=== PATIENT | female | born 1965 | race Caucasian/White ===

== ENCOUNTER 2017-07-08 16:55 | Inpatient (IN) | payer MEDICAID ==
[~2017-07-08] VITALS: Ht 160 cm; Wt 81.6 kg
[2017-07-08 17:00] VITALS: BP 160/78
--- NOTE | 2017-07-08 17:23 | NUR ---
PT C/O CONSTANT STABBING SENSATION PAIN TO UPPER ABDOMEN X 1 WEEK, WORSENING TODAY. WAS SEEN IN [facility], BUT NOT GETTING BETTER-DID NOT ANY RX PER PT. DENIES N/V/D, BUT REPORTS CONSTIPATION, LAST BM 07/04/17. DENIES FEVERS/CHILLS. DENIES DYSURIA, BUT STATES COLOR IS DARK ORANGE. MED HX: GALLSTONES. RX: PRILOSEC, MAALOXSKIN IS PINK/WARM/DRY; AAOX4 WITH EVEN AND STEADY GAIT; LUNGS CLEAR BL; PATIENT STATES PAIN OF 10/10 AT THIS TIME; PATIENT POSITIONED FOR COMFORT; HOB ELEVATED; BEDRAILS UP X2; BED DOWN. ER MD MADE AWARE OF PT STATUS.
--- NOTE | 2017-07-08 17:36 | NUR ---
Patient being evaluated by DR GIL at bedside.
[2017-07-08] MEDS ORDERED: MORPHINE SULFATE 4 MG/ML SYR IVP ONE (17:40)
[2017-07-08] MEDS ORDERED: NACL 0.9% 1,000 ML IV ONE (17:40)
[2017-07-08 18:05] LABS: BILIRUBIN,URINE 1+ (NEGATIVE); BLOOD, URINE 3+ (NEGATIVE); COLOR,URINE YELLOW (YELLOW); LEUKOCYTE ESTERASE ,URINE TRACE (NEGATIVE); NITRITE, URINE NEGATIVE (NEGATIVE); PH,URINE 7.5 (5.0-9.0); UGLUCOSE NEGATIVE (NEGATIVE)
[2017-07-08 18:06] LABS: APPEARANCE,URINE HAZY (CLEAR)
[2017-07-08 18:06] LABS: BASOPHILS % (AUTO) 0.6 % (0.0-2.0); EOSINOPHILS # (AUTO) 0.1 K/uL (0-0.4); EOSINOPHILS % (AUTO) 1.1 % (0.0-4.0); HEMATOCRIT 38.2 % (36-48); HEMOGLOBIN 12.8 g/dL (12.0-16.0); LYMPHOCYTES # (AUTO) 1.4 K/uL (2.5-16.5); LYMPHOCYTES % (AUTO) 17.1 % (20.5-51.1); MEAN CORPUSCULAR HEMOGLOBIN 30 pg (27-31); MEAN CORPUSCULAR HGB CONC 34 g/dL (33-37); MEAN CORPUSCULAR VOLUME 90 fL (80-94); MONOCYTES # (AUTO) 0.3 K/uL (0.8-1.0); MONOCYTES % (AUTO) 3.3 % (1.7-9.3); NEUTROPHILS # (AUTO) 6.1 K/uL (1.8-7.7); NEUTROPHILS % (AUTO) 77.9 % (42.2-75.2); PLATELET COUNT (AUTO) 220 K/uL (140-450); RED BLOOD CELL COUNT(AUTO) 4.25 MIL/uL (4.20-5.40); RED CELL DISTRIBUTION WIDTH 12.4 % (11.6-13.7); WHITE BLOOD COUNT (AUTO) 7.9 K/uL (4.8-10.8)
[2017-07-08 18:08] LABS: RBC,URINE 80-100 /HPF (0-5)
[2017-07-08 18:17] LABS: ANION GAP 15.4 (8-16); CARBON DIOXIDE 27.3 mmol/L (21-32); CREATININE 0.9 mg/dL (0.6-1.3); POTASSIUM 3.7 mmol/L (3.5-5.1)
[2017-07-08 18:23] LABS: ALBUMIN 4.1 g/dL (3.4-5.0); TOTAL BILIRUBIN 6.7 mg/dL (0.0-1.0)
--- NOTE | 2017-07-08 18:40 | NUR ---
PT C/O BODY RASHES & FEELS ITCHING. NOTIFIED DR GIL.
[2017-07-08] MEDS ORDERED: diphenhydrAMINE 50 MG/ML VIAL IVP ONE (18:50)
--- NOTE | 2017-07-08 19:02 | NUR ---
PT TAKEN TO X RAY
[2017-07-08] MEDS ORDERED: cefTRIAXone 1,000 MG VIAL ONE (19:04)
--- NOTE | 2017-07-08 19:14 | NUR ---
Pt report given to ESTUARDO ISLAS. Transfer of care at this time.
[2017-07-08] MEDS ORDERED: FAMOTIDINE 20 MG/2 ML VIAL IVP ONE (20:10)
[2017-07-08] MEDS ORDERED: NACL 0.9% 1,000 ML IV SCH (20:33)
[2017-07-08] MEDS ORDERED: DOCUSATE SODIUM 100 MG GELCAP PO PRN (20:35)
[2017-07-08] MEDS ORDERED: ACETAMINOPHEN 325 MG TAB PO PRN (20:35)
[2017-07-08] MEDS ORDERED: MORPHINE SULFATE 4 MG/ML SYR IVP PRN (20:35)
[2017-07-08] MEDS ORDERED: ONDANSETRON 4 MG/2 ML VIAL IM/IVP PRN (20:35)
--- NOTE | 2017-07-08 20:52 | NUR ---
Patient will be admitted to care of Dr. Dover. Admited to tele 112 A. Belongings list completed. Report to johnna. orders endorsed.
--- NOTE | 2017-07-08 21:00 | NUR ---
RECEIVED PT FROM ER VIA [facility] [employer] SPEAKER AAOX4 AMBULATORY ON TELEMETRY SR, HEP LOCK ON RT AC PATENT RELATIVES AT BED SIDE, NARES SWAB TAKEN AND SENT TO LAB , NOT SIGN OF ABD NOTED PT IS ORIENTED TO THE ROOM CALL LIGHT WITHIN REACH, SKIN IS INTACT. Addendum: 07/09/17 at 0017 by Lluvia Zarate RN PT ON ADMISSION IS SB HR 56 INSTRUCTIONAL FACILITATOR FROM ER
[2017-07-08 21:01] LABS: PROTHROMBIN TIME 9.6 secs (10.8-13.4)
[2017-07-08 21:02] LABS: BARBITURATE, URINE NEG. ng/ml (NEG <=200); BENZODIAZEPINE, URINE NEG. ng/mL (NEG <=200); CANNABINOID, URINE NEG. ng/mL (NEG <=50); COCAINE, URINE NEG. ng/mL (NEG <=300); OPIATE, URINE NEG. ng/mL (NEG <=2000); PHENCYCLIDINE SCREEN,URINE NEG. ng/mL (NEG <=25)
--- NOTE | 2017-07-08 21:02 | NUR ---
PT SKIN COLOR IS JAUNDICE AND TOTAL BILIRRUBINE IS 6.7
[2017-07-08 21:13] LABS: FREE T4 (FREE THYROXINE) 1.24 ng/dL (0.76-1.46); MAGNESIUM 2.1 mg/dL (1.8-2.4); PHOSPHORUS 3.1 mg/dL (2.5-4.9); THYROID STIMULATING HORMONE 1.32 uIU/mL (0.34-3.74)
[2017-07-08 21:15] VITALS: BP 127/74
[2017-07-08] MEDS ORDERED: BISACODYL 5 MG TABEC PO SCH (22:35)
[2017-07-08] MEDS ORDERED: LEVOFLOXACIN 750 MG/D5W PREMIX 150 ML IV SCH (22:55)
[2017-07-08] MEDS ORDERED: diphenhydrAMINE 50 MG/ML VIAL IVP SCH (23:35)
[2017-07-09] VITALS (9 sets, daily range): BP systolic 108–138; BP diastolic 57–77
--- NOTE | 2017-07-09 | NUR ---
PT IS ASSISTED TO GO TO THE RESTROOM DENIES ANY PAIN ON TELEMETRY SB
--- NOTE | 2017-07-09 03:19 | NUR ---
REMAIN STABLEDENIES ANT ABD PAIN SKLEEPINGWELL ON TELEMETRY SB
[2017-07-09] MEDS ORDERED: CLINDAMYCIN 600 MG/4 ML VIAL ONE (04:26)
[2017-07-09] MEDS: CLINDAMYCIN 600 MG in DEXTROSE 5% 50 ML IV SCH ×2 (04:55→13:24)
--- NOTE | 2017-07-09 06:59 | NUR ---
PT HAS BEEN VOIDING WELL IV ON RT AC INFUSING WELL NOT DISTRESS NOTED ONTELEMETRY SB PT WILL BE ENDORSED TO DAY SHIFT FOR CONTINUITY OF CARE
[2017-07-09 07:08] LABS: BASOPHILS # (AUTO) 0.1 K/uL (0.00-0.22); BASOPHILS % (AUTO) 0.9 % (0.0-2.0); EOSINOPHILS # (AUTO) 0.1 K/uL (0-0.4); EOSINOPHILS % (AUTO) 0.9 % (0.0-4.0); HEMOGLOBIN 12.3 g/dL (12.0-16.0); LYMPHOCYTES # (AUTO) 0.7 K/uL (2.5-16.5); LYMPHOCYTES % (AUTO) 11.9 % (20.5-51.1); MEAN CORPUSCULAR HEMOGLOBIN 32 pg (27-31); MEAN CORPUSCULAR HGB CONC 35 g/dL (33-37); MEAN CORPUSCULAR VOLUME 90 fL (80-94); MONOCYTES # (AUTO) 0.5 K/uL (0.8-1.0); MONOCYTES % (AUTO) 8.9 % (1.7-9.3); NEUTROPHILS # (AUTO) 4.7 K/uL (1.8-7.7); NEUTROPHILS % (AUTO) 77.4 % (42.2-75.2); PLATELET COUNT (AUTO) 190 K/uL (140-450); RED CELL DISTRIBUTION WIDTH 12.7 % (11.6-13.7); WHITE BLOOD COUNT (AUTO) 6.1 K/uL (4.8-10.8)
--- NOTE | 2017-07-09 07:15 | NUR ---
ASSUMED CONTINUITY OF CARE. NO SIGNS AND SYMPTOMS OF ACUTE DISTRESS NOTED. INITIAL ASSESSMENT DONE. FAMILIARIZED WITH SURROUNDINGS. EXPLAINED DIAGNOSIS, PLAN OF CARE, PAIN MANAGEMENT TEACHING, USE OF CALL LIGHT/BED/TV/BATHROOM. VERBALIZED UNDERSTANDING. CALL LIGHT WITHIN REACH.
[2017-07-09 07:17] LABS: ANION GAP 14.7 (8-16); CARBON DIOXIDE 25.3 mmol/L (21-32); CREATININE 0.8 mg/dL (0.6-1.3)
--- NOTE | 2017-07-09 07:20 | NUR ---
Patient's Plan of Care was discussed and reviewed with CHEF BROILER OR FRY: ABDOUL.
[2017-07-09 07:23] LABS: PHOSPHORUS 3.7 mg/dL (2.5-4.9)
--- NOTE | 2017-07-09 08:25 | NUR ---
PATIENT HAS BEEN SCREENED AND CATEGORIZED MODERATE NUTRITION RISK. PATIENT WILL BE SEEN WITHIN 3-5 DAYS OF ADMISSION. 07/10/17-07/12/[address]
[2017-07-09] MEDS: LACTOBACILLUS RHAMNOSUS GG 1 EACH CAP PO SCH (08:50)
[2017-07-09] MEDS: DEXT 5% / NACL 0.45% 1,000 ML IV SCH ×2 (09:42→22:56)
[2017-07-09] MEDS: HYDROcodone/APAP 7.5/325 MG 1 TAB PO PRN ×2 (09:52→18:16)
[2017-07-09] MEDS: PANTOPRAZOLE 40 MG INJ VIAL IVP SCH (09:54)
[2017-07-09] MEDS: hydrOXYzine HCL 25 MG TAB PO PRN (11:58)
--- NOTE | 2017-07-09 13:35 | NUR ---
DR. CAMACHO WENT INSIDE PT. ROOM AND SPOKE TO PT. AND FAMILY MEMBERS AND EXPLAINED PROCEDURE WITH ASSISTANCE FROM GEORGE SOMMERS -ESTUARDO.
--- NOTE | 2017-07-09 13:40 | NUR ---
CM NOTE INITIAL REVIEW FOR CRITERIA DONE
[2017-07-09] MEDS ORDERED: TAMSULOSIN 0.4 MG CAP PO SCH (13:49)
--- NOTE | 2017-07-09 14:06 | NUR ---
WENT TO GI [facility]IA [facility]. AWAKE, ALERT, AND ORIENTED X4. NO C/O PAIN. IN STABLE CONDITION.
[2017-07-09] MEDS ORDERED: PROPOFOL 200 MG/20 ML VIAL IV ONE (14:09)
[2017-07-09 14:30] LABS: TOTAL BILIRUBIN 7.3 mg/dL (0.0-1.0)
[2017-07-09] MEDS ORDERED: GLUCAGON 1 MG VIAL ONE (14:39)
[2017-07-09] MEDS ORDERED: LACTATED RINGERS 1,000 ML IV SCH (15:46)
[2017-07-09] MEDS ORDERED: ONDANSETRON 4 MG/2 ML VIAL IVP PRN (15:50)
[2017-07-09] MEDS ORDERED: MEPERIDINE 25 MG/ML SYR IVP PRN (15:50)
[2017-07-09] MEDS ORDERED: diphenhydrAMINE 50 MG/ML VIAL IVP PRN (15:50)
[2017-07-09] MEDS ORDERED: HYDROmorphone 1 MG/ML AMP IVP PRN (15:50)
[2017-07-09] MEDS ORDERED: MEPERIDINE 25 MG/ML SYR ONE (16:20)
[2017-07-09] MEDS ORDERED: HYDROmorphone PFS 2 MG/ML SYR IVP PRN (16:25)
[2017-07-09] MEDS ORDERED: ONDANSETRON 4 MG/2 ML VIAL ONE (16:35)
--- NOTE | 2017-07-09 16:40 | NUR ---
BACK FROM OR VIA GURNEY. IN STABLE CONDITION. KEEP COMFORTABLE ON BED. PT. ON BEDSIDE. CALL LIGHT WITHIN REACH.
--- NOTE | 2017-07-09 17:14 | NUR ---
PT UNABLE TO DO IS AT THIS TIME
[2017-07-09] MEDS: AMPICILLIN/SULBACTAM 3 GM in NACL 0.9% 100 ML IV SCH (17:35)
[2017-07-09] MEDS: ALBUTEROL SULFATE/IPRATROPIU 3 ML SOL IH SCH (19:01)
--- NOTE | 2017-07-09 19:05 | NUR ---
BEDSIDE REPORT GIVEN TO NEIDA TORRES. IVF INFUSING WELL. IN STABLE CONDITION.
--- NOTE | 2017-07-09 19:06 | NUR ---
RECEIVED HANDOFF REPORT FROM AM RN. PATIENT A&OX4. IV SITE PATENT AND INTACT. PATIENT STATES PAIN. FAMILY AT BEDSIDE. PATIENT STATES MORPHINE MAKES HER DIZZY AND NAUSEAS, CONSULTED WITH DR. FARRELL, AWAITING NEW ORDER. NO SIGNS OR SYMPTOMS OF ACUTE DISTRESS NOTED. SAFETY MEASURES ENSURED. FAMILY AT BEDSIDE. WILL CONTINUE TO MONITOR.
--- NOTE | 2017-07-09 19:14 | NUR ---
PATIENT RESTING COMFORTABLE IN BED. FAMILY STATES TO WAIT UNTIL PATIENT WAKES UP TO GIVE HER MORE PAIN MEDICATION AND THEY WILL CALL WHEN SHE WAKES UP. NO SIGNS OR SYMPTOMS OF ACUTE DISTRESS NOTED. SAFETY MEASURES ENSURED. CALL LIGHT WITHIN REACH. WILL CONTINUE TO MONITOR.
[2017-07-09] MEDS ORDERED: LEVOFLOXACIN 750 MG/D5W PREMIX 150 ML IV SCH (21:00)
[2017-07-09] MEDS: KETOROLAC 30 MG/ML VIAL IM PRN ×2 (22:28→22:30)
[2017-07-10] VITALS: BP 110/49
[2017-07-10] MEDS: hydrOXYzine HCL 25 MG TAB PO PRN (00:09)
[2017-07-10] MEDS: AMPICILLIN/SULBACTAM 3 GM in NACL 0.9% 100 ML IV SCH ×4 (00:12→18:30)
--- NOTE | 2017-07-10 00:15 | NUR ---
NEW IV STARTED ON PATIENT. 20 G TO RIGHT HAND. PATIENT TOLERATED WELL. IV TAKEN OUT OF RIGHT A/C TIP INTACT. NO SIGNS OR SYMPTOMS OF ACUTE DISTRESS NOTED. SAFETY MEASURES ENSURED. CALL LIGHT WITHIN REACH. WILL CONTINUE TO MONITOR.
[2017-07-10] MEDS: ALBUTEROL SULFATE/IPRATROPIU 3 ML SOL IH SCH ×4 (00:48→19:16)
--- NOTE | 2017-07-10 00:54 | NUR ---
hhntx given breath sounds are clear. sats on room air 95%. no sob noted
[2017-07-10] MEDS: DEXT 5% / NACL 0.45% 1,000 ML IV SCH (01:57)
[2017-07-10 04:00] VITALS: BP 123/60
[2017-07-10 06:16] LABS: T4 (THYROXINE) 9.2 ug/dL (4.5-12.0)
[2017-07-10 06:58] LABS: BASOPHILS % (AUTO) 0.6 % (0.0-2.0); EOSINOPHILS # (AUTO) 0.1 K/uL (0-0.4); EOSINOPHILS % (AUTO) 0.7 % (0.0-4.0); HEMOGLOBIN 10.5 g/dL (12.0-16.0); LYMPHOCYTES # (AUTO) 0.6 K/uL (2.5-16.5); LYMPHOCYTES % (AUTO) 7.8 % (20.5-51.1); MEAN CORPUSCULAR HEMOGLOBIN 31 pg (27-31); MEAN CORPUSCULAR HGB CONC 34 g/dL (33-37); MEAN CORPUSCULAR VOLUME 90 fL (80-94); MONOCYTES # (AUTO) 0.6 K/uL (0.8-1.0); MONOCYTES % (AUTO) 8.3 % (1.7-9.3); NEUTROPHILS # (AUTO) 6.2 K/uL (1.8-7.7); NEUTROPHILS % (AUTO) 82.6 % (42.2-75.2); PLATELET COUNT (AUTO) 199 K/uL (140-450); RED BLOOD CELL COUNT(AUTO) 3.44 MIL/uL (4.20-5.40); RED CELL DISTRIBUTION WIDTH 12.3 % (11.6-13.7); WHITE BLOOD COUNT (AUTO) 7.5 K/uL (4.8-10.8)
--- NOTE | 2017-07-10 07:30 | NUR ---
RECEIVED PT REPORT FROM PRESIDENT & CEO RN. NO SIGNS AND SYMPTOMS OF ACUTE DISTRESS NOTED. IV NOTED TO THE RIGHT HAND, INFUSING WELL. DENIES PAIN AT THIS TIME. INITIAL ASSESSMENT DONE. DISCUSSED PLAN OF CARE, PAIN MANAGEMENT TEACHING, USE OF CALL LIGHT/BED/TV/BATHROOM. VERBALIZED UNDERSTANDING. CALL LIGHT WITHIN REACH.
[2017-07-10 07:36] LABS: ANION GAP 12.3 (8-16); CARBON DIOXIDE 27.5 mmol/L (21-32); CREATININE 0.9 mg/dL (0.6-1.3); POTASSIUM 3.8 mmol/L (3.5-5.1)
--- NOTE | 2017-07-10 07:38 | NUR ---
ENDORSED PLAN OF CARE TO AM RN. PATIENT IN STABLE CONDITION.
[2017-07-10 07:46] LABS: PHOSPHORUS 4.1 mg/dL (2.5-4.9)
[2017-07-10 07:57] LABS: TOTAL BILIRUBIN 6.3 mg/dL (0.0-1.0)
[2017-07-10 08:00] VITALS: BP 113/50
--- NOTE | 2017-07-10 08:05 | NUR ---
TWO ABG ATTEMPTS PT MOVES SHE REFUSES ABG Addendum: 07/10/17 at 0815 by Kavita Freeman RT RN INFORMED
[2017-07-10] MEDS: ATORVASTATIN 20 MG TAB PO SCH (09:10)
[2017-07-10] MEDS: PANTOPRAZOLE 40 MG INJ VIAL IVP SCH (09:11)
[2017-07-10] MEDS: TAMSULOSIN 0.4 MG CAP PO SCH (09:11)
[2017-07-10] MEDS: LACTOBACILLUS RHAMNOSUS GG 1 EACH CAP PO SCH (09:11)
--- NOTE | 2017-07-10 12:00 | NUR ---
BLOOD PRESSURE IS LOW, MADE DR REES AWARE.
[2017-07-10 12:30] VITALS: BP 103/40
[2017-07-10] MEDS ORDERED: NACL 0.9% 500 ML IV SCH (13:25)
[2017-07-10] MEDS ORDERED: NACL 0.9% 1,000 ML IV SCH (13:30)
[2017-07-10] MEDS ORDERED: SODIUM PHOSPHATE 118 ML ENEM RC SCH (14:00)
--- NOTE | 2017-07-10 14:00 | NUR ---
ENEMA GIVEN, NO BM NOTED.
[2017-07-10 16:00] VITALS: BP 99/43
--- NOTE | 2017-07-10 16:30 | NUR ---
MAGNESIUM CITRATE GIVEN. PT DRANK ALL OF IT. BEDSIDE COMMODE PROVIDED.
[2017-07-10] MEDS ORDERED: MAGNESIUM CITRATE 300 ML BTL PO SCH (16:45)
[2017-07-10] MEDS ORDERED: DOCUSATE SODIUM 100 MG GELCAP PO SCH (16:45)
[2017-07-10] MEDS ORDERED: MAGNESIUM HYDROXIDE 2400 MG/30 ML UDC PO SCH (18:45)
--- NOTE | 2017-07-10 19:30 | NUR ---
ENDORSED PLAN OF CARE TO AM RN. PATIENT IN STABLE CONDITION.
--- NOTE | 2017-07-10 19:32 | NUR ---
RECEIVED HANDOFF REPORT FROM AM RN. PATIENT A&OX4. PATIENT DENIES PAIN. IV SITE PATENT AND INTACT. PATIENT IS IN WITH RT GETTING BREATHING TREATMENT. NO SIGNS OR SYMPTOMS OF ACUTE DISTRESS NOTED. CALL LIGHT WITHIN REACH. WILL CONTINUE TO MONITOR.
--- NOTE | 2017-07-10 19:58 | NUR ---
PATIENT HAS LOW BP. PATIENT DENIES DIZZINESS. PATIENT DENIES WEAKNESS. PATIENT STATES SHE FEELS NORMAL. WILL CONTINUE TO MONITOR.
[2017-07-10 20:00] VITALS: BP 108/38
[2017-07-10] MEDS: DOCUSATE SODIUM 100 MG GELCAP PO SCH (20:06)
[2017-07-11] VITALS: BP 102/43
[2017-07-11] MEDS: ALBUTEROL SULFATE/IPRATROPIU 3 ML SOL IH SCH ×4 (01:00→19:45)
--- NOTE | 2017-07-11 01:10 | NUR ---
PT ASLEEP, AND WHEN I TRY TO EXPLAIN WHAT IM DOING , SHE SAID THAT SHE WANTS TO SLEEP. NO DISTRESS NOTED, OR SOB
[2017-07-11 04:00] VITALS: BP 110/56
[2017-07-11] MEDS: hydrOXYzine HCL 25 MG TAB PO PRN ×3 (04:15→20:56)
[2017-07-11] MEDS: AMPICILLIN/SULBACTAM 3 GM in NACL 0.9% 100 ML IV SCH ×5 (05:40→17:57)
[2017-07-11 06:41] LABS: ANION GAP 11.1 (8-16); CARBON DIOXIDE 28.5 mmol/L (21-32); CREATININE 0.8 mg/dL (0.6-1.3); POTASSIUM 3.6 mmol/L (3.5-5.1)
[2017-07-11 06:48] LABS: MAGNESIUM 2.1 mg/dL (1.8-2.4); PHOSPHORUS 3.2 mg/dL (2.5-4.9)
[2017-07-11 06:49] LABS: ALBUMIN 2.8 g/dL (3.4-5.0); BILIRUBIN,DIRECT 3.3 mg/dL (0.0-0.3); TOTAL BILIRUBIN 4.1 mg/dL (0.0-1.0)
[2017-07-11 07:07] LABS: BASOPHILS % (AUTO) 0.9 % (0.0-2.0); EOSINOPHILS # (AUTO) 0.1 K/uL (0-0.4); EOSINOPHILS % (AUTO) 1.2 % (0.0-4.0); HEMATOCRIT 23.5 % (36-48); LYMPHOCYTES # (AUTO) 0.7 K/uL (2.5-16.5); LYMPHOCYTES % (AUTO) 13.1 % (20.5-51.1); MEAN CORPUSCULAR HEMOGLOBIN 31 pg (27-31); MEAN CORPUSCULAR HGB CONC 34 g/dL (33-37); MEAN CORPUSCULAR VOLUME 90 fL (80-94); MONOCYTES # (AUTO) 0.6 K/uL (0.8-1.0); MONOCYTES % (AUTO) 10.1 % (1.7-9.3); NEUTROPHILS # (AUTO) 4.1 K/uL (1.8-7.7); NEUTROPHILS % (AUTO) 74.7 % (42.2-75.2); PLATELET COUNT (AUTO) 163 K/uL (140-450); RED BLOOD CELL COUNT(AUTO) 2.61 MIL/uL (4.20-5.40); RED CELL DISTRIBUTION WIDTH 12.7 % (11.6-13.7); WHITE BLOOD COUNT (AUTO) 5.5 K/uL (4.8-10.8)
[2017-07-11 07:13] LABS: HEMOGLOBIN 8.1 g/dL (12.0-16.0)
--- NOTE | 2017-07-11 07:52 | NUR ---
ENDORSED PLAN OF CARE TO AM RN. PATIENT IN STABLE CONDITION
--- NOTE | 2017-07-11 07:55 | NUR ---
RECEIVED PATIENT REPORT AT BEDSIDE FROM NIGHT NURSE, PATIENT IS AAOX4 AND SHOWS NO S/S OF ACUTE DISTRESS ON ROOM AIR, DENIES PAIN AND SOB. SKIN INTACT. NOTED IV ON THE RIGHT HAND SL. ON TELE MONITOR. DISCUSSED POC WITH PATIENT AND SHE VERBALIZED UNDERSTANDING. SAFETY PRECAUTIONS IN PLACE. BED IN LOW POSITION WITH CALL LIGHT WITHIN REACH.
[2017-07-11 08:00] VITALS: BP 109/52
[2017-07-11] MEDS: LACTOBACILLUS RHAMNOSUS GG 1 EACH CAP PO SCH (08:43)
[2017-07-11] MEDS: DOCUSATE SODIUM 100 MG GELCAP PO SCH ×2 (08:44→20:53)
[2017-07-11] MEDS: TAMSULOSIN 0.4 MG CAP PO SCH (08:44)
[2017-07-11] MEDS: ATORVASTATIN 20 MG TAB PO SCH (08:44)
[2017-07-11] MEDS: PANTOPRAZOLE 40 MG INJ VIAL IVP SCH (08:44)
--- NOTE | 2017-07-11 08:47 | NUR ---
ADMINISTERED SCHEDULED MEDICATIONS, PATIENT SWALLOWED WITHOUT DIFFICULTY PATIENT DENIES N/V AND TOLERATED BREAKFAST WELL. DENIES PAIN. ALL NEEDS MET AT THIS TIME.
[2017-07-11 12:09] LABS: BASOPHILS # (AUTO) 0.1 K/uL (0.00-0.22); BASOPHILS % (AUTO) 1.3 % (0.0-2.0); EOSINOPHILS # (AUTO) 0.1 K/uL (0-0.4); HEMATOCRIT 26.2 % (36-48); HEMOGLOBIN 8.7 g/dL (12.0-16.0); LYMPHOCYTES # (AUTO) 0.8 K/uL (2.5-16.5); LYMPHOCYTES % (AUTO) 13.3 % (20.5-51.1); MEAN CORPUSCULAR HEMOGLOBIN 30 pg (27-31); MEAN CORPUSCULAR HGB CONC 33 g/dL (33-37); MEAN CORPUSCULAR VOLUME 89 fL (80-94); MONOCYTES # (AUTO) 0.5 K/uL (0.8-1.0); MONOCYTES % (AUTO) 8.5 % (1.7-9.3); NEUTROPHILS # (AUTO) 4.7 K/uL (1.8-7.7); NEUTROPHILS % (AUTO) 75.9 % (42.2-75.2); PLATELET COUNT (AUTO) 192 K/uL (140-450); RED BLOOD CELL COUNT(AUTO) 2.94 MIL/uL (4.20-5.40); RED CELL DISTRIBUTION WIDTH 12.9 % (11.6-13.7); WHITE BLOOD COUNT (AUTO) 6.2 K/uL (4.8-10.8)
[2017-07-11 12:22] VITALS: BP 111/50
--- NOTE | 2017-07-11 12:28 | NUR ---
ADMINISTERED SCHEDULED MEDICATIONS, PATIENT IV ABX INFUSING WELL. PATIENT C/O IV ON THE RIGHT FOREARM FEELING UNCOMFORTABLE, IV WAS DISCONTINUED WITH CANNULA INTACT. ALL NEEDS MET AT THIS TIME, BED IN LOW POSITION WITH CALL LIGHT WITHIN REACH,
--- NOTE | 2017-07-11 13:50 | NUR ---
PATIENT HAS FAMILY AT BEDSIDE, PATIENT SHOWS NO S/S OF ACUTE DISTRESS ON ROOM AIR, PATIENT C/O FEELING "ITCHY" HOWEVER PATIENT REFUSED PRN MEDICATION FOR ITCHINESS AT THIS TIME BC IT IS TOLERABLE. ALL NEEDS MET AT THIS TIME.
--- NOTE | 2017-07-11 15:32 | NUR ---
PATIENT C/O ITCHINESS AND WAS GIVEN ATARAX 25 MG PO, ALL NEEDS MET AT THIS TIME.
[2017-07-11 16:00] VITALS: BP 108/52
--- NOTE | 2017-07-11 18:07 | NUR ---
ADMINISTERED SCHEDULED MEDICATIONS. IV ABX INFUSING WELL AT THIS TIME.
--- NOTE | 2017-07-11 19:44 | NUR ---
PATIENT REPORT GIVEN AT BEDSIDE TO NIGHT NURSE, PATIENT ENDORSED IN STABLE CONDITION.
--- NOTE | 2017-07-11 19:45 | NUR ---
RECEIVED PT FROM CAMERON RN PT MAORI SPEAKER AAOX4 AMBULATORY IV ON RT HAND INFUSING WELL TKO, ON TELEMETRY SR INITIAL ASSESSMENT DONE
[2017-07-11 20:00] VITALS: BP 104/42
--- NOTE | 2017-07-11 21:30 | NUR ---
PT AMBULATES TO THE RESTROOM VOIDING WELL ,DENIES ANY DISTRESS AT THIS TIME
[2017-07-12] VITALS: BP 119/44
[2017-07-12] MEDS: KETOROLAC 30 MG/ML VIAL IM PRN ×2 (00:02→06:22)
[2017-07-12] MEDS: AMPICILLIN/SULBACTAM 3 GM in NACL 0.9% 100 ML IV SCH ×4 (00:05→17:59)
[2017-07-12] MEDS: ALBUTEROL SULFATE/IPRATROPIU 3 ML SOL IH SCH ×4 (01:00→18:51)
--- NOTE | 2017-07-12 01:00 | NUR ---
AFTER PAIN MEDIC GIVEN PT SLEEP QUIET NOT DISTRESS NOTED ON TELEMETRY SR
[2017-07-12 04:00] VITALS: BP 93/45
--- NOTE | 2017-07-12 04:00 | NUR ---
PT SPONGE BATH GIVEN LINEN CHANGED ON TELEMETRY SR ON CLOSE MONITORING
[2017-07-12 06:20] LABS: BASOPHILS # (AUTO) 0.1 K/uL (0.00-0.22); BASOPHILS % (AUTO) 1.1 % (0.0-2.0); EOSINOPHILS # (AUTO) 0.1 K/uL (0-0.4); HEMATOCRIT 22.6 % (36-48); HEMOGLOBIN 7.6 g/dL (12.0-16.0); LYMPHOCYTES # (AUTO) 0.8 K/uL (2.5-16.5); LYMPHOCYTES % (AUTO) 13.2 % (20.5-51.1); MEAN CORPUSCULAR HEMOGLOBIN 30 pg (27-31); MEAN CORPUSCULAR HGB CONC 34 g/dL (33-37); MEAN CORPUSCULAR VOLUME 90 fL (80-94); MONOCYTES # (AUTO) 0.6 K/uL (0.8-1.0); MONOCYTES % (AUTO) 9.4 % (1.7-9.3); NEUTROPHILS # (AUTO) 4.8 K/uL (1.8-7.7); NEUTROPHILS % (AUTO) 75.3 % (42.2-75.2); PLATELET COUNT (AUTO) 156 K/uL (140-450); RED BLOOD CELL COUNT(AUTO) 2.52 MIL/uL (4.20-5.40); RED CELL DISTRIBUTION WIDTH 12.6 % (11.6-13.7); WHITE BLOOD COUNT (AUTO) 6.4 K/uL (4.8-10.8)
[2017-07-12 06:27] LABS: ANION GAP 10.8 (8-16); CARBON DIOXIDE 30.1 mmol/L (21-32); CREATININE 0.8 mg/dL (0.6-1.3); POTASSIUM 3.9 mmol/L (3.5-5.1)
[2017-07-12 06:32] LABS: MAGNESIUM 1.9 mg/dL (1.8-2.4); PHOSPHORUS 4.4 mg/dL (2.5-4.9)
--- NOTE | 2017-07-12 06:39 | NUR ---
PT VERBALIZED TO HAVE A HEAVY PAIN ON ABD PT WILL BE MONITORING PAIN MEDIC GIVEN ORDER ON TELEMETRY SR
[2017-07-12 06:53] LABS: BILIRUBIN,DIRECT 2.5 mg/dL (0.0-0.3); TOTAL BILIRUBIN 3.3 mg/dL (0.0-1.0)
--- NOTE | 2017-07-12 07:30 | NUR ---
RECEIVED PT FROM PRODUCTION POSTING CLERK RN, ANGLE. PT IS AAOX4, AMBULATORY IV NOTED ON THE RT HAND, 20G, ASYMPTOMATIC, INFUSING WELL. ON TELEMETRY. PT C/O OF RIGHT ABD PAIN. WILL NOTIFY THE DOCTOR AND MEDICATE ORDERED. INITIAL ASSESSMENT DONE, ALL SAFETY PRECAUTIONS MET, WILL CONTINUE TO MONITOR.
[2017-07-12 08:00] VITALS: BP 135/54
--- NOTE | 2017-07-12 08:10 | NUR ---
DR CAMACHO HAS SEEN THE PT. WILL ADMINISTER DILAUDID PER DR CAMACHO'S ORDER.
[2017-07-12] MEDS: HYDROmorphone PFS 2 MG/ML SYR IVP PRN ×2 (08:38→17:59)
[2017-07-12] MEDS: LACTOBACILLUS RHAMNOSUS GG 1 EACH CAP PO SCH (08:55)
[2017-07-12] MEDS: TAMSULOSIN 0.4 MG CAP PO SCH (08:55)
[2017-07-12] MEDS: DOCUSATE SODIUM 100 MG GELCAP PO SCH (08:56)
[2017-07-12] MEDS: PANTOPRAZOLE 40 MG INJ VIAL IVP SCH (08:56)
[2017-07-12] MEDS: ATORVASTATIN 20 MG TAB PO SCH (08:56)
[2017-07-12] MEDS: DEXT 5% /NACL 0.9% 1,000 ML IV SCH ×2 (08:57→18:05)
--- NOTE | 2017-07-12 10:10 | NUR ---
STARTED IV 20G ON RIGHT AC FOR CT CONTRAST. 1 ATTEMPT, PT TOLERATED WELL. PT HAS SIGNED THE CONSENT FOR CT ABD/PELVIS W/ CONTRAST.
[2017-07-12] MEDS ORDERED: KETOROLAC 30 MG/ML VIAL IVP PRN (10:25)
--- NOTE | 2017-07-12 10:35 | NUR ---
PT IS BACK FROM CT, RECONNECTED PT OF IVF D5NS. TORADOL GIVEN FOR PAIN.
--- NOTE | 2017-07-12 10:44 | NUR ---
CM NOTE PATIENT INFORMATION FAXED TO [facility](FAX# [phone], C: [phone]) & [facility] (FAX# [phone], C: [phone]) FOR HIGHER LEVEL OF CARE.
[2017-07-12 12:00] VITALS: BP 97/44
--- NOTE | 2017-07-12 12:00 | NUR ---
PER PT'S FAMILY REQUEST, DR REES HAS DISCUSSED THE PLAN OF CARE WITH THE FAMILY.
--- NOTE | 2017-07-12 12:00 | NUR ---
HELPED PT URINATED IN THE BEDPAN. URINE IS YELLOW COLOR.
--- NOTE | 2017-07-12 12:15 | NUR ---
PT REFUSED PAIN MEDS AND STATED HER PAIN IS 4/10 AND OK RIGHT NOW.
--- NOTE | 2017-07-12 13:38 | NUR ---
CM NOTE PER ANA, [facility] FOR [facility] (C: [phone]), NO TELEMETRY BEDS AVAILABLE. Addendum: 07/12/17 at 1349 by Omero Bergman RN PER [facility] FROM [facility] (C: [phone]), NO BEDS AVAILABLE.
[2017-07-12 14:02] LABS: BASOPHILS % (AUTO) 0.5 % (0.0-2.0); EOSINOPHILS % (AUTO) 0.7 % (0.0-4.0); HEMATOCRIT 22.7 % (36-48); HEMOGLOBIN 7.7 g/dL (12.0-16.0); LYMPHOCYTES # (AUTO) 0.7 K/uL (2.5-16.5); LYMPHOCYTES % (AUTO) 10.5 % (20.5-51.1); MEAN CORPUSCULAR HEMOGLOBIN 31 pg (27-31); MEAN CORPUSCULAR HGB CONC 34 g/dL (33-37); MEAN CORPUSCULAR VOLUME 90 fL (80-94); MONOCYTES # (AUTO) 0.6 K/uL (0.8-1.0); NEUTROPHILS # (AUTO) 5.6 K/uL (1.8-7.7); NEUTROPHILS % (AUTO) 80.3 % (42.2-75.2); PLATELET COUNT (AUTO) 161 K/uL (140-450); RED BLOOD CELL COUNT(AUTO) 2.52 MIL/uL (4.20-5.40); RED CELL DISTRIBUTION WIDTH 12.6 % (11.6-13.7); WHITE BLOOD COUNT (AUTO) 6.9 K/uL (4.8-10.8)
--- NOTE | 2017-07-12 14:10 | NUR ---
PT STATED PAIN LEVEL 3/10, NO PAIN MEDICATION IS REQUIRED AT THIS TIME.
--- NOTE | 2017-07-12 14:33 | NUR ---
07/12/2017 RD INITIAL ASSESSMENT COMPLETED PLEASE REFER TO NUTRITION ASSESSMENT UNDER CARE ACTIVITY FOR ESTIMATED NUTRITIONAL NEEDS. CONTINUE NPO STATUS MEDICALLY APPROPRIATE. ADVANCE DIET TO REGULAR TEXTURE ONCE PT ABLE TO TOLERATE. RD TO FOLLOW-UP IN 3-5 DAYS PATIENT IS MODERATE RISK. THEO DASILVA, MAE
[2017-07-12 16:00] VITALS: BP 94/54
[2017-07-12] MEDS ORDERED: DOCU-299 PO (17:46)
[2017-07-12] MEDS ORDERED: IPRA3AMP IH (17:46)
[2017-07-12] MEDS ORDERED: AMPI1PDS19 IV (17:46)
[2017-07-12] MEDS ORDERED: ATOR20TA40 PO (17:46)
[2017-07-12] MEDS ORDERED: DIL2I IVP (17:46)
[2017-07-12] MEDS ORDERED: TAMS0.4C96 PO (17:46)
[2017-07-12] MEDS ORDERED: LACT10CA PO (17:46)
[2017-07-12] MEDS ORDERED: ATA25 PO (17:46)
[2017-07-12] MEDS ORDERED: PANT40PD7 IVP (17:46)
--- NOTE | 2017-07-12 18:25 | NUR ---
REPORT GIVEN TO ESTUARDO ZURITA AT [facility]. ACCEPTING MD DR PEPE.
--- NOTE | 2017-07-12 18:51 | NUR ---
PATIENT BEING DISCHARGE AT THIS TIME, MEDICATION PUT BACK IN PYXIS, HR 80, SAO2 97% RR 16, BS, CLEAR, AND DECREASED AT BASES
--- NOTE | 2017-07-12 18:55 | NUR ---
PT HAS BEEN TRANSFER TO UPPER LEVEL OF CARE PER MD ORDER. PT HAS BEEN DISCHARGED TO [facility] VIA [facility]UL[facility]. PT HAS LEFT IN STABLE CONDITION. IV RIGHT HAND 20 G AND RIGHT AC 20G HEPLOCKED. DISCHARGE PAPER AND INSTRUCTIONS PROVIDED. PT VERBALIZED UNDERSTANDING. PT LEFT WITH ALL HER BELONGINGS. DISCHARGE PACKET AND CD PROVIDED TO EMT.
--- NOTE | 2017-07-12 19:23 | NUR ---
CALL PLACED TO [facility] [facility] [facility] AND SPOKE WITH KEESHA AND INFORMED HER THAT PLACEMENT HAS BEEN FOUND FOR PT AND ALSO CALLED I TRANSFER UNIT AND SPOKE WITH SOURAV AND INFORMED HIM THAT PLACEMENT HAS BEEN FOUND FOR PT.
== END 2017-07-12 19:10 | disposition short-term general hospital (02) | DRG 241 ==
LOC: MED 16:55 → MTU 20:33
PROVIDERS: ADMIT Family Medicine Sports Medicine; ATTEND Family Medicine Sports Medicine
PROC: BF101ZZ Fluoroscopy of Bile Ducts using Low Osmolar Contrast (ICD-10-PCS; 2017-07-09)
PROC: 0FC98ZZ Extirpation of Matter from Common Bile Duct, Via Natural or Artificial Opening Endoscopic (ICD-10-PCS; 2017-07-09)
PROC: 0F798DZ Dilation of Common Bile Duct with Intraluminal Device, Via Natural or Artificial Opening Endoscopic (ICD-10-PCS; 2017-07-09)
PROC: 0DB68ZX Excision of Stomach, Via Natural or Artificial Opening Endoscopic, Diagnostic (ICD-10-PCS; principal; 2017-07-09 14:00)
DX: K29.70 Gastritis, unspecified, without bleeding (principal); J69.0 Pneumonitis due to inhalation of food and vomit; E43 Unspecified severe protein-calorie malnutrition; K76.0 Fatty (change of) liver, not elsewhere classified; K80.50 Calculus of bile duct without cholangitis or cholecystitis without obstruction; N10 Acute pyelonephritis; N20.0 Calculus of kidney; E66.9 Obesity, unspecified; K44.9 Diaphragmatic hernia without obstruction or gangrene; J98.11 Atelectasis; K21.9 Gastro-esophageal reflux disease without esophagitis; K59.00 Constipation, unspecified; L29.9 Pruritus, unspecified; K76.89 Other specified diseases of liver; F17.210 Nicotine dependence, cigarettes, uncomplicated; R74.0 Nonspecific elevation of levels of transaminase and lactic acid dehydrogenase [LDH]; G47.33 Obstructive sleep apnea (adult) (pediatric); H26.9 Unspecified cataract; Z68.31 Body mass index [BMI] 31.0-31.9, adult; Z90.49 Acquired absence of other specified parts of digestive tract
CPT/HCPCS: 36415; 71045; 74018; 74330; 76705; 80048; 80053; 80076; 80305; 81001; 81025; 82140; 82150; 82247; 82248; 83036; 83690; 83735; 83880; 84100; 84436; 84439; 84443; 84479; 85025; 85610; 85730; 86677; 87081; 87086; 93005; 94640; 96361; 96365; 96375; 99285; C1727; C1769; C9113; G0482; J0295; J0696; J1170; J1200; J1610; J1885; J1956; J2175; J2270; J2405; J2704; J3490; J7030; J7042; J7060; J7620; Q0092; Q9967

== ENCOUNTER 2018-06-03 11:10 | Emergency (ER) | payer MEDICAID ==
[~2018-06-03] VITALS: Ht 157.5 cm; Wt 82.1 kg
[~2018-06-03 11:10] MED LIST: ALBU3SOL83 IH; AMPI1PDS19 IV; ATA25 PO; ATOR20TA40 PO; DIL2I IVP; DOCU-299 PO; LACT10CA PO; PANT40PD7 IVP; TAMS0.4C96 PO
[2018-06-03 11:24] VITALS: BP 115/73
[2018-06-03 12:38] LABS: BASOPHILS % (AUTO) 0.6 % (0.0-2.0); EOSINOPHILS # (AUTO) 0.1 K/uL (0-0.4); HEMATOCRIT 37.7 % (36-48); HEMOGLOBIN 12.6 g/dL (12.0-16.0); LYMPHOCYTES # (AUTO) 1.4 K/uL (2.5-16.5); LYMPHOCYTES % (AUTO) 24.1 % (20.5-51.1); MEAN CORPUSCULAR HEMOGLOBIN 30 pg (27-31); MEAN CORPUSCULAR HGB CONC 34 g/dL (33-37); MEAN CORPUSCULAR VOLUME 90.1 fL (80-94); MONOCYTES # (AUTO) 0.3 K/uL (0.8-1.0); MONOCYTES % (AUTO) 5.5 % (1.7-9.3); NEUTROPHILS # (AUTO) 3.9 K/uL (1.8-7.7); NEUTROPHILS % (AUTO) 68.8 % (42.2-75.2); PLATELET COUNT (AUTO) 194 K/uL (140-450); RED BLOOD CELL COUNT(AUTO) 4.18 MIL/uL (4.20-5.40); RED CELL DISTRIBUTION WIDTH 13.5 % (11.6-13.7); WHITE BLOOD COUNT (AUTO) 5.6 K/uL (4.8-10.8)
[2018-06-03 12:41] LABS: APPEARANCE,URINE HAZY (CLEAR); BILIRUBIN,URINE NEGATIVE (NEGATIVE); BLOOD, URINE 3+ (NEGATIVE); COLOR,URINE YELLOW (YELLOW); LEUKOCYTE ESTERASE ,URINE NEGATIVE (NEGATIVE); NITRITE, URINE NEGATIVE (NEGATIVE); UGLUCOSE NEGATIVE (NEGATIVE)
[2018-06-03 12:42] LABS: RBC,URINE 20-50 /HPF (0-5)
[2018-06-03 12:43] LABS: WBC,URINE 0-5 (RARE) /HPF (0-5)
[2018-06-03] MEDS: MORPHINE SULFATE 4 MG/ML SYR IM ONE (12:49)
[2018-06-03] MEDS: ONDANSETRON 4 MG ODT PO ONE (12:53)
[2018-06-03 13:15] LABS: ALBUMIN 3.9 g/dL (3.4-5.0); CARBON DIOXIDE 29.8 mmol/L (21-32); CREATININE 0.8 mg/dL (0.6-1.3); POTASSIUM 3.8 mmol/L (3.5-5.1); TOTAL BILIRUBIN 0.5 mg/dL (0.0-1.0)
[2018-06-03] MEDS: MORPHINE SULFATE 4 MG/ML SYR IVP ONE (14:17)
[2018-06-03 16:06] VITALS: BP 107/52
== END 2018-06-03 16:06 | disposition home or self-care (01) ==
LOC: MED 11:10
DX: R10.11 Right upper quadrant pain (principal); R42 Dizziness and giddiness; Z90.49 Acquired absence of other specified parts of digestive tract; Z79.899 Other long term (current) drug therapy; Z88.6 Allergy status to analgesic agent
CPT/HCPCS: 36415; 74176; 80053; 81001; 83690; 85025; 96372; 96374; 99284; J2270; Q0162

== ENCOUNTER 2020-06-18 09:31 | Emergency (ER) | payer MEDICAID ==
[~2020-06-18] VITALS: Ht 165.1 cm; Wt 86.2 kg
--- NOTE | 2020-06-18 09:35 | NUR ---
AMBULATED TO BED 7
[2020-06-18 09:40] VITALS: BP 98/38
[2020-06-18] MEDS ORDERED: NACL 0.9% 1,000 ML IV ONE (09:40)
--- NOTE | 2020-06-18 09:47 | NUR ---
PT W/C ASSSITED TO BED 7.
[2020-06-18] MEDS ORDERED: ONDANSETRON 4 MG/2 ML VIAL IVP ONE (09:50)
--- NOTE | 2020-06-18 09:52 | NUR ---
Pt assisted to bathroom via W/C for UA.
--- NOTE | 2020-06-18 09:55 | NUR ---
55 Y/O FEMALE. C/O PAIN TO UPPER RIGHT QUADRANT 10/10 SHARP PAIN FOR 3 DAYS WITH N/V. Hx KIDNEY STONES; PT STATES THIS PAIN IS SIMILAR TO THAT. PT CAME IN GROANING AND CHARLY OVER IN PAIN, GUARDING + TENDERNESS. PT IS A&O X4, BREATHING IS REGULAR AND UNLABORED. PT LAYING IN BED, BED IN LOWEST POSITION, BRAKES LOCKED WITH 1 SIDERAIL UP. ALLERGIES: IBUPROFEN
[2020-06-18] MEDS ORDERED: MORPHINE SULFATE 4 MG/ML SYR IVP ONE ×2 (10:10→11:10)
--- NOTE | 2020-06-18 10:11 | NUR ---
Patient being evaluated by Dr. Ye at bedside.
--- NOTE | 2020-06-18 10:15 | NUR ---
DR CHUN AT BEDSIDE FOR FURTHER EVALUATION
--- NOTE | 2020-06-18 10:46 | NUR ---
LAB AT PT BEDSIDE
--- NOTE | 2020-06-18 11:10 | NUR ---
PT STATING PAIN IS STILL 10/10, PT IS MOANING IN BED. REQUESTING MORE PAIN MEDICATION. DR CHUN MADE AWARE
--- NOTE | 2020-06-18 12:15 | NUR ---
TYLER BRUMFIELD SPOKE WITH PTS DAUGHTER FOR PENDING DISCHARGE. DAUGHTER ON HER WAY.
[2020-06-18 12:49] VITALS: BP 104/53
--- NOTE | 2020-06-18 12:50 | NUR ---
Patient discharged with v/s stable. Written and verbal after care instructions given and explained. Patient alert, oriented and verbalized understanding of instructions. Wheel Chair Assisted with to home. All questions addressed prior to discharge. ID band removed. Patient advised to follow up with PMD. Rx of motrin 800mg tab TID PO, flomax 0.4mg capsule PO daily, zofran 8mg tab q8hrs PO, norco 5mg-325mg tab q6hrs PO given. Patient educated on indication of medication including possible reaction and side effects. Opportunity to ask questions provided and answered.
== END 2020-06-18 12:50 | disposition home or self-care (01) ==
LOC: MED 09:31
DX: R10.9 Unspecified abdominal pain (principal); R11.2 Nausea with vomiting, unspecified; Z88.6 Allergy status to analgesic agent; Z79.899 Other long term (current) drug therapy; Z90.49 Acquired absence of other specified parts of digestive tract
CPT/HCPCS: 81002; 96361; 96374; 96375; 96376; 99284; J2270; J2405; J7030; 81025